=== PATIENT | male | born 1995 | race Caucasian/White ===

== ENCOUNTER 2018-02-17 20:32 | Emergency (ER) | payer OTHER ==
--- NOTE | 2018-02-17 21:34 | ER Document Report ---
ED General - General Chief Complaint: Head Injury Stated Complaint: FELL/HEAD PAIN Time Seen by Provider: 02/17/18 21:12 TRAVEL OUTSIDE OF THE [place] IN LAST 30 DAYS: No - HPI Notes: Patient is a 23-year-old male with no significant past medical history who presents to the ED complaining of a head injury with loss of consciousness prior to arrival. Patient states that he was playing basketball and went up to block a shot when he was hit in the jaw knocked backwards landing on his back and head. Patient states that he landed on pavement and does have some cuts to his scalp. Patient was told that he had about 1 second of mild shaking right before regaining consciousness. Patient states that he remembers the entire incident otherwise and has been "back to normal" since then. Patient states that he has been ambulating without any difficulties. His parents state that he is acting and behaving normally. Patient states he does have some soreness to his right shoulder, but is able to use it without any difficulties. No other concerns or complaints. No back pain. Denies any fever, changes in vision/speech/mentation/hearing, URI, sore throat, chest pain, palpitations, syncope, cough, shortness of breath, wheeze, dyspnea, abdominal pain, nausea/ vomiting/diarrhea, urinary retention, dysuria, hematuria, loss of control of bowel or bladder, numbness/tingling, saddle anesthesia, muscle paralysis/ weakness, or rash. - Related Data Allergies/Adverse Reactions: Sulfa (Sulfonamide Antibiotics) Allergy (Verified 02/17/18 21:17) Past Medical History - Social History Smoking Status: Never Smoker Chew tobacco use (# tins/day): Yes Frequency of alcohol use: Social Drug Abuse: None Family History: Reviewed & Not Pertinent Patient has suicidal ideation: No Patient has homicidal ideation: No Renal/ Medical History: Denies: Hx Peritoneal Dialysis Review of Systems - Review of Systems -: Yes All other systems reviewed and negative Physical Exam - Vital signs Vitals: Temp Pulse Resp BP Pulse Ox 98.8 F 83 18 123/98 H 100 02/17/18 20:41 02/17/18 20:41 02/17/18 20:41 02/17/18 20:41 02/17/18 20:41 - Notes Notes: PHYSICAL EXAMINATION: GENERAL: Well-appearing, well-nourished and in no acute distress. A&Ox4. Answers questions appropriately. HEAD: there is a 2.2cm irregular superficial laceration next to another 1.5cm irregular superficial lac to the scalp posteriorly w/o obvious step-off. + tenderness. No obvious bogginess. No mendes sign. EYES: Pupils equal round and reactive to light, extraocular movements intact, sclera anicteric, conjunctiva are normal. No raccoon eyes/entrapment. No nystagmus. Vis moreno intact. ENT: EAC clear b/l. TM's intact b/l without erythema, fluid, or perforation. Nares patent and without discharge. oropharynx clear without exudates. No tonsilar hypertrophy or erythema. Moist mucous membranes. No sinus tenderness. No hemotympanum/CSF discharge. Face: + tenderness to the mandible with LROM to widening due to discomfort. No missing or loose teeth. NECK: Normal range of motion, supple without lymphadenopathy. No rigidity. No obvious midline tenderness, but pt has distracting injury with his PRADO/injury and cannot r/o by NEXUS. Chest: No flail chest. equal rise/fall. Non-tender LUNGS: Breath sounds clear to auscultation bilaterally and equal. No wheezes rales or rhonchi. HEART: Regular rate and rhythm without murmurs, rubs, gallops. ABDOMEN: Soft, nontender, nondistended abdomen. No guarding, no rebound. No masses appreciated. Normal bowel sounds present. No CVA tenderness bilaterally. No ecchymosis. Musculoskeletal: Ext's b/l: FROM to passive/active. Strength 5+/5. No deficits noted. No bony tenderness of extremities. N/V intact distal. Back: FROM to passive/active. Strength 5+/5. No vertebral point tenderness, stepoffs, or deformities. No other bony tenderness or ecchymosis. Extremities: No cyanosis, clubbing, or edema b/l. Peripheral pulses 2+. Capillary refill less than 2 seconds. NEUROLOGICAL: NIH 0. GCS 15. Cranial nerves grossly intact. Normal speech, normal gait. Normal sensory, motor exams. Reflexes 2+ b/l. GREGORIA's negative. Pronator drift negative. Heel/floyd, finger/nose wnl. Walking on heels/toes and heel to toe wnl. Rhomberg negative. PSYCH: Normal mood, normal affect. SKIN: see above. Course - Re-evaluation Re-evalutation: 02/17/18 23:19 Patient is an afebrile, well-hydrated, 23-year-old male who presents to the ED with a head injury and scalp laceration. Vitals are acceptable without any significant tachycardia, tachypnea, or hypoxia. PE is otherwise unremarkable for any focal neurological deficits. NIH 0, GCS 15, cranial nerves grossly intact. CT scan of the head, cervical spine, and facial bones was unremarkable for any acute pathology aside from the hematoma to the scalp. Patient is nontoxic-appearing and is tolerating p.o. without difficulties. No further labs or imaging warranted at this time. Patient is able to ambulate without any difficulties as well. He has not had any deterioration throughout his stay. Wounds was thoroughly irrigated and cleansed. Wound edges were approximated appropriately with 7 reilly. Wound dressing was placed and wound instructions reviewed. Tetanus was updated today. Low suspicion for any acute glaucoma, temporal arteritis, meningitis, intracranial hemorrhage, ischemic stroke, or fracture at this time. Patient is aware that his condition can change from initial presentation and that he needs to monitor symptoms closely for any acute changes. I will send him home with a prescription for Keflex. Conservative measures otherwise for symptoms. Recheck with your PCM in 2-3 days. Return to the ED with any worsening/concerning symptoms otherwise as reviewed in discharge. Patient and parents are in agreement. - Vital Signs Vital signs: Temp Pulse Resp BP Pulse Ox 98.8 F 83 18 123/98 H 100 02/17/18 20:41 02/17/18 20:41 02/17/18 20:41 02/17/18 20:41 02/17/18 20:41 Procedures - Laceration/Wound Repair Posterior Head Time completed: 23:15 Wound length (cm): 2.2 - and another 1.5cm Wound's Depth, Shape: Superficial, Irregular Laceration pre-procedure: Sterile PPE donned, Sterile drapes applied, Other - chlorhexadine/saline Anesthetic type: Other - topical LET Wound explored: Clean, No foreign body removed Irrigated w/ Saline (mLs): 200 Wound Debrided: none Wound Repaired With: [place] Number of Sutures: 7 Layer Closure?: No Post-procedure wound care: Sterile dressing applied Post-procedure NV exam normal: Yes Complications: No Discharge - Discharge Clinical Impression: Head injury Qualifiers: Encounter type: initial encounter Qualified Code(s): S09.90XA - Unspecified injury of head, initial encounter Scalp laceration Qualifiers: Encounter type: initial encounter Qualified Code(s): S01.01XA - Laceration without foreign body of scalp, initial encounter Condition: Stable Disposition: HOME, SELF-CARE Instructions: Antibiotic Ointment Protection ([facility]), Head Injury Precautions ( [facility]), Laceration Care ([facility]), Prophylactic Antibiotic ([facility]), Soap Cleansing ([facility]) , Tetanus Immunization Given ([facility]) Additional Instructions: Do not shower or bathe for 24 hours. After 24 hours you may shower but no submersion of the wound under water. Keep the original dressing on the wound for 24 hours unless the drainage soaks through. Change the dressing daily thereafter and keep the staple material clean from any dried discharge. You may leave the wound open to the air once there is no more discharge. See your PCM in 2-3 days for a recheck. Monitor for any signs of worsening pain or redness, purulent drainage, streaks, and/or fever. Return to the ED if noticing any of the above symptoms or as needed. Take medications as directed. Your reilly will need to be removed in 7-9 days. Return to the ED with any worsening symptoms and/or development of fever, headache, changes in behavior/mentation/vision/speech, chest pain, palpitations , syncope, shortness of breath, trouble breathing, abdominal pain, n/v/d, blood in stool/urine, loss of control of bowel/bladder, urinary retention, muscle weakness/paralysis, saddle anesthesia, numbness/tingling, or other worsening symptoms that are concerning to you. Prescriptions: Cephalexin Monohydrate [Keflex 500 mg Capsule] 500 mg PO BID #10 capsule Forms: Elevated Blood Pressure, Return to Work Referrals: NAOMIE CHRISTIE MD [ACTIVE STAFF] - Follow up as needed
[2018-02-17] MEDS ORDERED: LIDOCAINE 4%/TETRACAINE 0.5%/EPI 0.18% 5 ML TOPICAL SOLN TOP ONE (21:35)
--- NOTE | 2018-02-17 21:49 | RADIOLOGY REPORT (SQ) ---
EXAM DESCRIPTION: CT HEAD WITHOUT IV CONTRAST COMPLETED DATE/TME: 02/17/2018 21:13 CLINICAL HISTORY: 23 years, Male, LOC, head injury, pain COMPARISON: None. TECHNIQUE: 199 Images stored on PACS. All CT scanners at this facility use dose modulation, iterative reconstruction, and/or weight based dosing when appropriate to reduce radiation dose to as low as reasonably achievable (ALARA). [facility]: Dose Right [facility]: CareDose [facility]: Dose Right [facility]: Teradose 4D [facility]: [employer] LIMITATIONS: None. FINDINGS: The globes are intact. The paranasal sinuses and mastoid air cells are unremarkable. No displaced or depressed skull fracture. No intra or extra-axial hemorrhage. CT is limited for evaluation of acute infarct. No CT evidence for large or territorial acute infarct. No mass or midline shift. Posterior parietal scalp hematoma noted. IMPRESSION: Posterior parietal scalp hematoma. No acute intracranial abnormality. TECHNICAL DOCUMENTATION: Quality ID # 436: Final reports with documentation of one or more dose reduction techniques (e.g., Automated exposure control, adjustment of the mA and/or kV according to patient size, use of iterative reconstruction technique) 2010 [employer]- All Rights Reserved
--- NOTE | 2018-02-17 21:52 | RADIOLOGY REPORT (SQ) ---
EXAM DESCRIPTION: CT MAXILLOFACIAL WITH IV CONTRAST COMPLETED DATE/TME: 02/17/2018 21:27 CLINICAL HISTORY: 23 years, Male, face pain s/p injury, primary mandible COMPARISON: None. TECHNIQUE: 216 Images stored on PACS. All CT scanners at this facility use dose modulation, iterative reconstruction, and/or weight based dosing when appropriate to reduce radiation dose to as low as reasonably achievable (ALARA). [facility]: Dose Right [facility]: CareDose [facility]: Dose Right [facility]: Teradose 4D [facility]: [employer] LIMITATIONS: None. FINDINGS: The globes are intact. The retrobulbar fat is preserved. Negative for facial bone fracture. The paranasal sinuses and mastoid air cells are well aerated. No bony destructive or expansile process. There is some minor soft tissue edema and inflammation surrounding the mandible. IMPRESSION: No acute osseous abnormality. Minor soft tissue edema and inflammation surrounding the mandible. TECHNICAL DOCUMENTATION: Quality ID # 436: Final reports with documentation of one or more dose reduction techniques (e.g., Automated exposure control, adjustment of the mA and/or kV according to patient size, use of iterative reconstruction technique) 2010 [employer]- All Rights Reserved
--- NOTE | 2018-02-17 21:53 | RADIOLOGY REPORT (SQ) ---
CT CERVICAL SPINE WITHOUT IV CONTRAST COMPLETED DATE/TME: 02/17/2018 21:13 CLINICAL HISTORY: 23 years Male LOC, head injury, pain COMPARISON: None. TECHNIQUE: Contiguous axial images obtained through the cervical spine without IV contrast. Coronal and sagittal reformatted images obtained. This exam was performed according to our department optimization program which includes automated exposure control, adjustment of the mA and/or kv according to patient size and/or use of iterative reconstruction technique. FINDINGS: Vertebral body alignment is unremarkable. No acute fractures. No significant central canal stenosis. Prevertebral soft tissues appear within normal limits. Reversal of the normal lordosis. IMPRESSION: No acute cervical spinal fracture is identified.
[2018-02-17] MEDS ORDERED: DIPH/PERTUSS(ACELL)/TETANUS VAC/PF 0.5 ML SYR (>=10YO) IM ONE (22:08)
[2018-02-17] MEDS ORDERED: LIDOCAINE 4%/TETRACAINE 0.5%/EPI 0.18% 5 ML TOPICAL SOLN ONE (22:20)
[2018-02-17] MEDS ORDERED: CEPHALEXIN 500 MG CAPSULE PO ONE (23:20)
[2018-02-17] MEDS ORDERED: ONDANSETRON 4 MG TAB.RAPDIS PO ONE (23:36)
[2018-02-17] MEDS ORDERED: OXYCODONE HCL IR 5 MG TABLET PO ONE (23:36)
[2018-02-17 23:57] VITALS: BP 127/77
== END 2018-02-17 23:58 | disposition home or self-care (01) ==
LOC: EDSEX 20:32 → ER 20:32
DX: S01.01XA Laceration without foreign body of scalp, initial encounter (principal); S09.90XA Unspecified injury of head, initial encounter; W03.XXXA Other fall on same level due to collision with another person, initial encounter; Y93.67 Activity, basketball; Z88.2 Allergy status to sulfonamides; Z23 Encounter for immunization
CPT/HCPCS: 99284; 90471; 70450; 70487; 72125; 90715; 12002; S0119; J3490